=== PATIENT | male | born 1985 | race American Indian/Alaskan Native ===

== ENCOUNTER 2021-06-17 10:03 | Emergency (ER) | payer SELFPAY ==
--- NOTE | 2021-06-17 15:17 | Emergency Department Report ---
ED General Adult HPI - General Chief complaint: High BP Stated complaint: BP HIGH Time Seen by Provider: 06/17/21 14:53 Source: patient Mode of arrival: Ambulatory Limitations: No Limitations - History of Present Illness Initial comments: 36-year-old male presents to the ER today with concern of elevated blood pressure. Patient states that in the past week he has noticed that his been having intermittent headache whenever he gets hungry and has been having some mild twitching to his left intermittently. He states that he decided to check his blood pressure to see if that could be possibly a cause of his symptoms. He states that he bought a blood pressure machine a couple days ago. His blood pressures have been elevated in the 140s over 100s. Patient states that in the past whenever he would go to doctors office visits, he was told that his blood pressure was "slightly" elevated but he was never started on blood pressure medications. He denies any chest pain, shortness of breath, focal weakness, or any additional symptoms. MD Complaint: elevated blood pressure -: week(s) (1) - Related Data Previous Rx's Medication Instructions Recorded Last Taken Type Amlodipine Besylate [Norvasc] 5 mg PO DAILY #30 06/17/21 Unknown Rx Allergies Allergy/AdvReac Type Severity Reaction Status Date / Time No Known Allergies Allergy Verified 06/17/21 11:12 ED Review of Systems ROS: Stated complaint: BP HIGH Other details as noted in HPI Comment: All other systems reviewed and negative Constitutional: no symptoms reported Eyes: other (Mild left eye twitch). denies: eye pain, eye discharge, vision change ENT: denies: ear pain, throat pain, dental pain, hearing loss, epistaxis, congestion Respiratory: denies: cough, orthopnea, shortness of breath, SOB with exertion, SOB at rest, wheezing Cardiovascular: denies: chest pain, palpitations, dyspnea on exertion, edema, syncope, paroxysmal nocturnal dyspnea Gastrointestinal: denies: abdominal pain, nausea, diarrhea, constipation, hematemesis, hematochezia Genitourinary: denies: urgency, dysuria, frequency, hematuria, discharge, testicular pain, testicular mass Musculoskeletal: denies: back pain, joint swelling, arthralgia Skin: denies: rash, lesions, change in color, change in hair/nails, pruritus Neurological: headache. denies: weakness, numbness, paresthesias, confusion, abnormal gait, vertigo, other Psychiatric: denies: anxiety, depression, auditory hallucinations, visual hallucinations, homicidal thoughts Hematological/Lymphatic: denies: easy bleeding, easy bruising, swollen glands ED Past Medical Hx - Past Medical History Previous Medical History?: No - Surgical History Past Surgical History?: No - Medications Home Medications: Home Medications Medication Instructions Recorded Confirmed Last Taken Type Amlodipine Besylate [Norvasc] 5 mg PO DAILY #30 06/17/21 Unknown Rx ED Physical Exam - General Limitations: No Limitations General appearance: alert, in no apparent distress - Head Head exam: Present: atraumatic, normocephalic, normal inspection - Eye Eye exam: Present: normal appearance, PERRL, EOMI Pupils: Present: normal accommodation - ENT ENT exam: Present: normal exam, mucous membranes moist - Neck Neck exam: Present: normal inspection, full ROM. Absent: meningismus - Respiratory Respiratory exam: Present: normal lung sounds bilaterally. Absent: respiratory distress, wheezes, rales, rhonchi - Cardiovascular Cardiovascular Exam: Present: regular rate, normal rhythm, normal heart sounds - Back Exam Back exam: Present: normal inspection, full ROM - Neurological Exam Neurological exam: Present: alert, oriented X3, CN II-XII intact, normal gait - Psychiatric Psychiatric exam: Present: normal affect, normal mood - Skin Skin exam: Present: intact ED Course Vital Signs 06/17/21 06/17/21 11:14 15:51 Temperature 98.6 F Pulse Rate 90 78 Respiratory 18 16 Rate Blood Pressure 197/100 Blood Pressure 159/108 [Left] O2 Sat by Pulse 100 Oximetry ED Medical Decision Making - Medical Decision Making 36-year-old male presents to the ER today with concern of elevated blood pressure. Patient states that in the past week he has noticed that his been having intermittent headache whenever he gets hungry and has been having some mild twitching to his left intermittently. He states that he decided to check his blood pressure to see if that could be possibly a cause of his symptoms. He states that he bought a blood pressure machine a couple days ago. His blood pressures have been elevated in the 140s over 100s. Patient states that in the past whenever he would go to doctors office visits, he was told that his blood pressure was "slightly" elevated but he was never started on blood pressure medications. He denies any chest pain, shortness of breath, focal weakness, or any additional symptoms. Patient is well-appearing, nontoxic and in any acute distress. He has no focal neurological deficits. He is awake alert oriented x3. His gait is normal. Is mentally stable. Patient blood pressure was noted to be elevated at triage, remaining vital signs are stable. At this time and will see any indication for work-up or any imaging. Discussed my concern with patient about hypertension, he will be started on low-dose Norvasc. Also diet changes and low sodium diet was discussed with patient. Recommend that he checks his blood pressure no more than twice per day, keep a record of his blood pressure and follow-up with primary care doctor in about 1- 2 weeks. He understands to return if worse. Patient expressed understanding of instructions and agree with plan. Patient stable at time of discharge. Critical care attestation.: If time is entered above; I have spent that time in minutes in the direct care of this critically ill patient, excluding procedure time. ED Disposition Clinical Impression: Hypertension Disposition: 01 HOME / SELF CARE / HOMELESS Is pt being admited?: No Does the pt Need Aspirin: No Condition: Stable Instructions: Hypertension, Adult, [id number], Managing Your Hypertension, Hypertension (ED) Additional Instructions: I recommend that you start taking the Norvasc 5 mg daily. As discussed I recommend that you check your blood pressure no more than twice a day, keep a record of your blood pressure readings and bring it with you when you follow-up with the primary care doctor. Since you do not have a primary care doctor 1 will be provided for you in your discharge instructions. Recommend that you call to make an appointment for the next 2 to 3 weeks. Also continue to adjust your diet and increase your exercise as discussed. Return to the ER if your symptoms changes or worsens in any way. Prescriptions: Amlodipine Besylate [Norvasc] 5 mg PO DAILY #30 Referrals: DARIANA STORY MD [Staff Physician] - 3-5 Days RAN DELGADO MD [Primary Care Provider] - 3-5 Days [facility] [Provider Group] - 3-5 Days Time of Disposition: 15:17
[2021-06-17 17:07] VITALS: BP 159/108
== END 2021-06-17 15:51 | disposition home or self-care (01) ==
LOC: ED 10:03
DX: I10 Essential (primary) hypertension (principal)
CPT/HCPCS: 99282